=== PATIENT | male | born 1975 | race African-American/Black ===

== ENCOUNTER 2023-10-08 19:07 | Observation (INO) | payer BC, SELFPAY ==
[2023-10-08] VITALS (12 sets, daily range): BP systolic 131–190; BP diastolic 76–139; PULSE 99–120; RESP 15–23; TEMP 36.2–36.9; O2SAT 93–100; BMI 38.7
--- NOTE | ~2023-10-08 | XR_ITS ---
EXAMINATION: XR chest 1V portable DATE: 10/08/2023 20:16 INDICATION: Pneumonia. TECHNIQUE: A single frontal view of the chest was obtained. COMPARISON: CT abdomen and pelvis 10/08/2023 FINDINGS: There are airspace opacities in medial right lower lung zone. No pleural effusion or pneumo thorax. The heart size is normal. IMPRESSION: 1. Airspace opacities in medial right lower lung zone, consistent with pneumonia. Reviewed, dictated and finalized at location E. IMPRESSION: 1. Airspace opacities in medial right lower lung zone, consistent with pneumoni a.
--- NOTE | ~2023-10-08 | CT_ITS ---
EXAMINATION: CT diagnostic chest wo con DATE: 10/09/2023 12:47 INDICATION: necrotizing pna TECHNIQUE: Computed tomography (CT) of the chest was performed without intravenous contrast. Addition al 3D reconstructions utilizing coronal maximum intensity projection (MIP) were performed. Automated exposure control and iterative reconstruction technique were employed. The dose-length product was 94 0.48 mGy-cm. COMPARISON: CT abdomen and pelvis dated 10/08/2023 FINDINGS: No significant change in a region of consolidation involving the azygos esophageal recess at the medi al right lower lobe. As previously noted there is a small cavitary region within the consolidation th e portion which appears fluid-filled and the portion which is gas-filled. Remainder of the visualized lungs are clear. No pulmonary edema or pleural effusion. Heart size is normal. New minimal pericardi al effusion. Thoracic aorta is normal in caliber. No pathologically enlarged thoracic lymphadenopathy . Mild bilateral gynecomastia. Mild thoracic spondylosis. IMPRESSION: 1. No significant change in a region of consolidation with central cavitation in the medial right low er lobe consistent with necrotizing pneumonia. 2. New minimal pericardial effusion. Reviewed, dictated and finalized at location A. IMPRESSION: 1. No significant change in a region of consolidation with central cavitation i n the medial right lower lobe consistent with necrotizing pneumonia. 2. New minimal pericardial effusion.
--- NOTE | ~2023-10-08 | CT_ITS ---
EXAMINATION: CT abdomen pelvis w con DATE: 10/08/2023 19:57 INDICATION: Generalized abdominal pain. TECHNIQUE: Computed tomography (CT) of the abdomen and pelvis was performed with 100 mL Omnipaque 350 intravenous contrast. Automated exposure control and iterative reconstruction technique were employe d. The dose-length product was 1582.92 mGy-cm. COMPARISON: None. FINDINGS: The visualized portions of the lung bases demonstrate airspace opacities with air bronchogr ams and central necrosis in right lower lobe, consistent with pneumonia. No pleural effusion. The hea rt size is normal. No pericardial effusion. The liver, spleen, pancreas, adrenal glands, and kidneys are normal. The gallbladder is absent. The appendix is focally dilated to 17 mm with adjacent fat str anding and fluid, consistent with appendicitis. There is a small sliding hiatal hernia. There are no pathologically enlarged lymph nodes. There is mild thoracic and lumbar spondylosis. IMPRESSION: 1. Acute appendicitis. 2. Necrotizing pneumonia in right lung lower lobe. Reviewed, dictated and finalized at location E.
[2023-10-08 19:26] LABS: Basophils Absolute Auto 0.1 K/mm3 (0.0-0.1); Basophils Percent Auto 0.4 % (0.2-1.2); Eosinophils Absolute Auto 0.2 K/mm3 (0-0.3); Eosinophils Percent Auto 1.6 % (0-4.4); Hematocrit 40.4 % (42.0-52.0); Hemoglobin 13.1 g/dL (14.0-18.0); Immature Granulocyte Absolute 0.06 K/mm3 (0.00-0.031); Immature Granulocyte Percent A 0.4 % (0-0.5); Lymphocytes Absolute Auto 2.44 K/mm3 (0.9-3.2); Lymphocytes Percent Auto 17.2 % (18.3-44.2); Mean Corpuscular HGB Conc 32.4 g/dl (32-36); Mean Corpuscular Hemoglobin 27.3 pg (26-34); Mean Corpuscular Volume 84.3 fl (80-100); Mean Platelet Volume 8.4 fl (7.4-10.4); Monocytes Percent Auto 6.9 % (2.6-8.5); Neutrophils Absolute Auto 10.4 K/mm3 (1.3-6.7); Neutrophils Percent Auto 73.5 % (45.5-73.1); Platelet Count Result 399 k/mm3 (150-375); Red Blood Count 4.79 M/mm3 (4.6-6.20); Red Cell Distribution Width 14.8 % (11.5-14.5); White Blood Count 14.2 K/mm3 (4.5-10.0)
--- NOTE | 2023-10-08 19:28 | ECG_ITS ---
SEE SCANNED COPY FOR CONFIRMED REPORT MTDD
--- NOTE | 2023-10-08 19:29 | ED.ABDPAIN ---
HPI - Abdominal Pain General Chief Complaint: Abdominal Pain Stated Complaint: abd pain; hx of ulcers Time Seen by Provider: 10/08/23 19:12 History of Present Illness HPI narrative: 48-year-old male with a history of HTN and reported gastric ulcer presents to the emergency department for diffuse abdominal pain for 1 day. Patient states for the past few weeks he has had more heartburn than usual. Today he woke up with diffuse abdominal pain that is more near his periumbilical region and wraps around to his flanks. States he had a bowel movement today but it felt smaller than normal. States he has not passed flatulence since last night. He reports nausea, denies emesis. States he had an episode of diarrhea about 3-4 days ago but nothing recently. He denies fever, chest pain or shortness of breath, melena or hematochezia, hematemesis or coffee-ground emesis, dysuria or hematuria. He denies history of an EGD and does not take a PPI. Related Data Home Medications Medication Instructions Recorded Confirmed nifedipine 60 mg tablet,extended 60 mg PO DAILY 10/08/23 10/08/23 release Allergies Allergy/AdvReac Type Severity Reaction Status Date / Time No Known Allergies Allergy Verified 10/08/23 19:12 Review of Systems Review of Systems: CONSTITUTIONAL: Denies fever, chills, or sweats. EYES: Denies visual changes, redness, or discharge. ENT: Denies rhinorrhea, congestion, sore throat, or otalgia. CARDIOVASCULAR: Denies chest pain, palpitations, or edema. RESPIRATORY: Denies cough or dyspnea. GASTROINTESTINAL: See HPI GENITOURINARY: Denies dysuria or hematuria. SKIN: Denies rash or itching. MUSCULOSKELETAL: Denies back pain, joint pain, or myalgia. NEUROLOGIC: Denies headache, numbness, or weakness. PSYCHIATRIC: Denies anxiety or depression. [facility] Past Medical History Medical History (Updated 10/08/23 @ 22:48 by Emilia Cisse DO) Essential hypertension Obesity (BMI 30-39.9) Surgical History Surgical History (Updated 10/08/23 @ 22:38 by Emilia Cisse DO) Status post open reduction with internal fixation of fracture Right wrist fracture Family History Family History (Updated 10/08/23 @ 22:39 by Emilia Cisse DO) Sibling Blind in both eyes Obesity Social History Social History (Updated 10/08/23 @ 22:41 by Emilia Cisse DO) Social History: The patient is but lives with his girlfriend and her 6-year-old daughter. He also has a 28-year-old son. He works as a sales merchandise associate. He smoked cigarettes for about 3 years about 1 pack per week but quit when he was in his early 20s. He drinks on average 1 beer a day. He smokes marijuana on a frequent basis. He denies other illicit substance use. Code status: Full code Years smoked: 3 Smoking status: Current some day smoker Second hand tobacco smoke exposure: No Additional smoking assessment comments: marijuana Alcohol intake: current Drinks per week: 10 Alcohol use details: On average 1 beer a day with more on the weekends. Substance use: current Substance use type: marijuana Last use: 10/06/23 Do You Feel Safe in your Home?: Yes Lack of Transportation: No Lack of Food: Never True Current Housing: I Do Not Have Housing Concerned About Future Housing: No Difficulty Paying Gas/Electric Bills: No Difficulty Paying for Meds: No Currently Unemployed: No Education: Bachelor's Degree Difficulty w/ Childcare or Family Care: No Spiritual care concerns: No Exam Narrative: GENERAL: Well-appearing, well-nourished, and in no acute distress. HEAD: Normocephalic, atraumatic. EYES: PERRLA and EOMI. ENT: Nares clear, no rhinorrhea or epistaxis. Mucous membranes moist. NECK: Supple. CHEST: Clear to auscultation. No respiratory distress. HEART: Tachycardic with regular rhythm. No murmur heard. Normal peripheral pulses. ABDOMEN: Quiet bowel sounds. Abdomen soft with no tenderness, reboun
[2023-10-08 19:35] LABS: Alanine Aminotransferase 25 U/L (6-50); Albumin Level 4.9 g/dL (3.5-5.1); Alkaline Phosphatase 116 U/L (38-126); Anion Gap 10 mmol/L (4-12); Aspartate Amino Transferase 22 U/L (17-59); Bilirubin,Total 0.7 mg/dL (0.2-1.3); Blood Urea Nitrogen 13 mg/dL (9-20); Calcium 10.2 mg/dL (8.4-10.2); Carbon Dioxide 27 mmol/L (22-30); Chloride 104 mmol/L (98-107); Estimated CRCL calculation 114 ml/min; Estimated Glomerular Filt Rate > 60; Glucose 120 mg/dL (65-110); Lipase 66 U/L (23-300); Potassium 3.7 mmol/L (3.4-5.0); Sodium 141 mmol/L (137-145)
[2023-10-08] MEDS: SODIUM CHLORIDE 0.9% IV 1,000 ML 999 ML IV CONT ×3 (19:36→21:06)
[2023-10-08] MEDS: ONDANSETRON INJ 4 MG/2 ML VIAL IV PUSH (19:36)
[2023-10-08] MEDS: PANTOPRAZOLE SODIUM IV 40 MG VIAL IV PUSH (19:36)
--- NOTE | 2023-10-08 19:46 | PC.NURSE ---
Pt aware of need for urine sample.
[2023-10-08 19:49] LABS: Lactic Acid Reflex 1.3 mmol/L (0.7-2.0)
[2023-10-08 19:53] LABS: Troponin I < 0.012 ng/mL (0.000-0.034)
[2023-10-08 20:01] LABS: INR 0.9; Prothrombin Time 12.8 Seconds (11.1-14.7)
[2023-10-08 20:10] LABS: Appearance Urine Clear (Clear); Bacteria Urine None Seen /hpf; Bilirubin Urine Negative (Negative); Blood Urine Non-Hemolyzed Trace (Negative); Color Urine Yellow (Yellow); Glucose Urine UA Negative (Negative); Ketones Urine Trace mg/dL (Negative); Leukocyte Esterase Ur Negative LEU/UL (Negative); Nitrate Urine Negative (Negative); Non Pathogenic Casts 0-2; Protein Urine Negative (Negative); RBC Urine 0-2 /hpf (0-2); Squamous Epithelial Cell Urine None Seen /hpf (Few); Urobilinogen Urine 0.2 mg/dL (<2.0); WBC Urine 0-5 /hpf (0-3)
[2023-10-08] MEDS: MORPHINE SULFATE (*CRX) 4 MG/ML INJ IV PUSH (20:31)
[2023-10-08] MEDS: PIPERACILLN/TAZ 3.375GM/NS50ML 3.375 GM/50 ML BAG IVPB (20:32)
[2023-10-08 20:39] LABS: Add Urine Microscopic? YES; Specific Grav Ur 1.033 (1.001-1.035)
--- NOTE | 2023-10-08 21:07 | PM.IMHP ---
H&P: HPI History of Present Illness Date/Time: 10/08/23 21:07 Chief Complaint: Abdominal pain Narrative: 48-year-old male with past medical history of obesity and essential hypertension who presents the ER with private vehicle due to abdominal pain. The patient reports that he has been having GERD symptoms on and off for months. He took Tums, Maalox and Pepcid intermittently that would improve the symptoms. He had also had a some associated decreased appetite throughout that. But no nausea or vomiting. He reported that was difficult to eat due to the soreness of his throat from the burning pain that would go up his esophagus. However yesterday his pain acutely changed he. He developed the abdominal distension, decreased flatulence and diffuse abdominal pain. The pain is sharp and a 9/10 in intensity. He has had some associated nausea with this pain but no active vomiting. The pain is more so in the lower abdomen and radiates through to the back. His abdomen generally hurts but there is no rebound tenderness. He reports he has not had any flatulence since yesterday. He reports that he did have a couple of days of loose stools about 3 weeks ago but has not had a recurrence. He denies any hematochezia or melena. He denies prior history of abdominal surgeries. In the ER CT scan was performed which demonstrated findings consistent with acute appendicitis. Incidentally CT also demonstrates right lower lobe air bronchograms with central necrosis consistent with necrotizing pneumonia. Patient adamantly denies any respiratory symptoms. He denies pleuritic chest pain, cough, congestion, shortness of breath, fevers or chills. Patient does have a crowded posterior oropharynx. He states that he does snore but denies daytime fatigue. He states that his doctor told him recently that he needs to start watching his diet. This was around the time he had his cholesterol checked today thinks that his cholesterol may be getting a little bit high. Review of Systems Review of Systems: 12 systems were reviewed with pertinent positives and negatives per HPI. Except as documented in the HPI, all other systems were reviewed and are negative. [facility] Past Medical History Medical History (Updated 10/08/23 @ 22:48 by Emilia Cisse DO) Essential hypertension Obesity (BMI 30-39.9) Surgical History Surgical History (Updated 10/08/23 @ 22:38 by Emilia Cisse DO) Status post open reduction with internal fixation of fracture Right wrist fracture Family History Family History (Updated 10/08/23 @ 22:39 by Emilia Cisse DO) Sibling Blind in both eyes Obesity Social History Social History (Updated 10/08/23 @ 22:41 by Emilia Cisse DO) Social History: The patient is but lives with his girlfriend and her 6-year-old daughter. He also has a 28-year-old son. He works as a outside residential sales professional. He smoked cigarettes for about 3 years about 1 pack per week but quit when he was in his early 20s. He drinks on average 1 beer a day. He smokes marijuana on a frequent basis. He denies other illicit substance use. Code status: Full code Years smoked: 3 Smoking status: Former smoker Second hand tobacco smoke exposure: No Alcohol intake: current Drinks per week: 9 Alcohol use details: On average 1 beer a day with more on the weekends. Substance use: current Substance use type: marijuana Meds Home Medications and Allergies Home Medications Medication Instructions Recorded Confirmed Type nifedipine 60 mg tablet,extended mg PO 10/08/23 History release propranolol 10 mg tablet mg 10/08/23 History sertraline 50 mg tablet mg 10/08/23 History Allergies Allergy/AdvReac Type Severity Reaction Status Date / Time No Known Allergies Allergy Verified 10/08/23 19:12 Vital Signs Vital Signs - 24 hr 10/08/23 19:09 10/08/23 19:32 10/08/23 20:40 Temperature 98.5 F Pulse Rate 117 H 120
[2023-10-08] MEDS: HYDROmorphone HCL INJ (*CRX) 1 MG/ML SYR IV PUSH ×2 (21:41→23:05)
[2023-10-08] MEDS: VANCOMYCIN 1,250 MG/NS 250 ML 1,250 MG/250 ML BAG 166.67 MG IVPB ×2 (21:42→23:24)
[2023-10-08 22:03] LABS: MRSA (PCR) NOT DETECTED (NOT DETECTE)
--- NOTE | 2023-10-08 22:43 | ADMGEN ---
This patient, Phoenix Chua, was admitted to Medical Room 242-. Patient/family oriented to hospital policies and general routines including ID bracelet, bed and alarms, visiting hours, pain management, procedures, bathroom and other care routines, personal items, smoking policy, room service/diet, and visiting hours. Information on how to activate the Rapid Response Team has been discussed. Patient/Family are encouraged to report perceived risks to care and to ask questions if they do not understand what they are told or what they should do.
[2023-10-08] MEDS: SODIUM CHLORIDE 0.9% IV 1,000 ML 100 ML IV CONT (23:06)
[2023-10-09] VITALS (19 sets, daily range): BP systolic 99–161; BP diastolic 53–99; PULSE 74–110; RESP 16–19; TEMP 36.2–37.2; O2SAT 92–100
[2023-10-09] MEDS: PIPERACILLN/TAZ 3.375GM/NS50ML 3.375 GM/50 ML BAG IVPB ×2 (01:05→06:07)
--- NOTE | 2023-10-09 05:03 | PCRCNOTE ---
Apnea link not performed last night due to not enough time. The apnea link was ordered at 22:48, patient was being admitted by RN and she would be going in and out of his room for a couple of hours. Apnea link to be completed [facility] 10/08.
[2023-10-09 05:40] LABS: Basophils Percent Auto 0.2 % (0.2-1.2); Hematocrit 39.8 % (42.0-52.0); Hemoglobin 12.7 g/dL (14.0-18.0); Immature Granulocyte Percent A 0.6 % (0-0.5); Lymphocytes Absolute Auto 1.23 K/mm3 (0.9-3.2); Lymphocytes Percent Auto 7.2 % (18.3-44.2); Mean Corpuscular HGB Conc 31.9 g/dl (32-36); Mean Corpuscular Hemoglobin 27.3 pg (26-34); Mean Corpuscular Volume 85.6 fl (80-100); Mean Platelet Volume 8.8 fl (7.4-10.4); Monocytes Absolute Auto 1.2 K/mm3 (0.1-0.6); Monocytes Percent Auto 7.3 % (2.6-8.5); Neutrophils Absolute Auto 14.5 K/mm3 (1.3-6.7); Neutrophils Percent Auto 84.7 % (45.5-73.1); Platelet Count Result 395 k/mm3 (150-375); Red Blood Count 4.65 M/mm3 (4.6-6.20); Red Cell Distribution Width 14.5 % (11.5-14.5); White Blood Count 17.1 K/mm3 (4.5-10.0)
[2023-10-09 05:58] LABS: Anion Gap 8 mmol/L (4-12); Blood Urea Nitrogen 9 mg/dL (9-20); Calcium 8.9 mg/dL (8.4-10.2); Carbon Dioxide 25 mmol/L (22-30); Chloride 104 mmol/L (98-107); Estimated CRCL calculation 144 ml/min; Estimated Glomerular Filt Rate > 60; Glucose 124 mg/dL (65-110); Potassium 3.8 mmol/L (3.4-5.0); Sodium 137 mmol/L (137-145)
--- NOTE | 2023-10-09 07:12 | P.PNIM_ITS ---
Progress Note: A&P Assessment and Plan (1) Sepsis: Qualifiers: Sepsis acute organ dysfunction status: without acute organ dysfunction Sepsis type: sepsis due to unspecified organism Qualified Code(s): A41.9 - S epsis, unspecified organism Code(s): A41.9 - Sepsis, unspecified organism Status: Acute Assessment and Plan: Tachycardia, leukocytosis, tachypnea * appendicitis and possibly necrotizing pneumonia * Lactic 1.3, WBC 17.1 with left shift * 3 L NS received in the ED and placed on maintenance fluids 100 ml per hr * Started on Vanc and Zosyn, switched to Levaquin and Flagyl * Blood cultures pending (2) Acute appendicitis: Qualifiers: Acute appendicitis type: with localized peritonitis Appendicitis abscess presence: without abscess Appendicitis gangrene presence: without gangrene Appendicitis perforation presence: without perforation Qualified Code(s): K35.30 - Acute appendicitis with localized peritonitis, without perforation or gangrene Code(s): K35.80 - Unspecified acute appendicitis Status: Acute Assessment and Plan: Abdominal pain * CT imaging shows concerns for appendicitis * NPO now * Surgery consulted * Levaquin and Zosyn abx * Dilaudid prn for pain and zofran prn nausea (3) Necrotizing pneumonia: Code(s): J85.0 - Gangrene and necrosis of lung Status: Acute Assessment and Plan: CT findings of necrotizing pneumonia in right lung lower lobe. No respiratory symptoms. Patient has been having issues with GERD. Possible reflux aspiration contributing to pneumonia? * Levaquin and Flagyl * blood cultures pending, sputum culture if able * urine legionella, pneumococcal antigen and IgM antibody pending * Protonix 40 mg IVP daily * MRSA nares negative * incentive spirometer * o2 as needed (4) Snoring: Code(s): R06.83 - Snoring Status: Acute Assessment and Plan: Suspecting ELBA * apnea link at * likely would benefit from outpatient sleep study (5) Essential hypertension: Code(s): I10 - Essential (primary) hypertension Status: Acute Assessment and Plan: SBP 190-160/99-108 mm hg * uncontrolled HTN and possible elevation 2/2 pain * Restart Procardia today * Hydralazine prn for SBP > 160 mm hg or diastolic > 105 mm hg Plan Feeding: NPO for surgery Analgesia: Dilaudid prn Thromboembolic prophylaxis: Lovenox Ulcer prophylaxis: Protonix Glycemic control: NA Bowel regimen: NA Lines: PIV Antibiotics: levaquin and flagyl Disposition: home when medically stable Subjective Date/time seen: 10/09/23 07:12 Interval history: 48-year-old male with past medical history of obesity and essential hypertension who presents the ER with private vehicle due to abdominal pain. In the ER CT scan was performed which demonstrated findings consistent with acute appendi citis.? Incidentally CT also demonstrates right lower lobe air bronchograms with central necrosis consistent with necrotizing pneumonia.? Patient adamantly denies any respiratory symptoms.? He denies pleuritic chest pain, cough, congestion, shortness of breath, fevers or chills. Interval history: 10/08: The patient is seen resting in bed with family at bedside in no acute distress. He rates his abdominal pain about a 4/10. This is improved from 9/10 when he 1st presented. He denies any respiratory complaints including cough, shortness of breath, chest pain with inspiration, fever, or chills. His lung sounds are clear bilaterally. He is not requiring oxyge
--- NOTE | 2023-10-09 07:12 | PM.IMPN ---
Progress Note: A&P Assessment and Plan (1) Sepsis: Qualifiers: Sepsis acute organ dysfunction status: without acute organ dysfunction Sepsis type: sepsis due to unspecified organism Qualified Code(s): A41.9 - Sepsis, unspecified organism Code(s): A41.9 - Sepsis, unspecified organism Status: Acute Assessment and Plan: Tachycardia, leukocytosis, tachypnea appendicitis and possibly necrotizing pneumonia Lactic 1.3, WBC 17.1 with left shift 3 L NS received in the ED and placed on maintenance fluids 100 ml per hr Started on Vanc and Zosyn, switched to Levaquin and Flagyl Blood cultures pending (2) Acute appendicitis: Qualifiers: Acute appendicitis type: with localized peritonitis Appendicitis abscess presence: without abscess Appendicitis gangrene presence: without gangrene Appendicitis perforation presence: without perforation Qualified Code(s): K35.30 - Acute appendicitis with localized peritonitis, without perforation or gangrene Code(s): K35.80 - Unspecified acute appendicitis Status: Acute Assessment and Plan: Abdominal pain CT imaging shows concerns for appendicitis NPO now Surgery consulted Levaquin and Zosyn abx Dilaudid prn for pain and zofran prn nausea (3) Necrotizing pneumonia: Code(s): J85.0 - Gangrene and necrosis of lung Status: Acute Assessment and Plan: CT findings of necrotizing pneumonia in right lung lower lobe. No respiratory symptoms. Patient has been having issues with GERD. Possible reflux aspiration contributing to pneumonia? Levaquin and Flagyl blood cultures pending, sputum culture if able urine legionella, pneumococcal antigen and IgM antibody pending Protonix 40 mg IVP daily MRSA nares negative incentive spirometer o2 as needed (4) Snoring: Code(s): R06.83 - Snoring Status: Acute Assessment and Plan: Suspecting ELBA apnea link at likely would benefit from outpatient sleep study (5) Essential hypertension: Code(s): I10 - Essential (primary) hypertension Status: Acute Assessment and Plan: SBP 190-160/99-108 mm hg uncontrolled HTN and possible elevation 2/2 pain Restart Procardia today Hydralazine prn for SBP > 160 mm hg or diastolic > 105 mm hg Plan Feeding: NPO for surgery Analgesia: Dilaudid prn Thromboembolic prophylaxis: Lovenox Ulcer prophylaxis: Protonix Glycemic control: NA Bowel regimen: NA Lines: PIV Antibiotics: levaquin and flagyl Disposition: home when medically stable Subjective Date/time seen: 10/09/23 07:12 Interval history: 48-year-old male with past medical history of obesity and essential hypertension who presents the ER with private vehicle due to abdominal pain. In the ER CT scan was performed which demonstrated findings consistent with acute appendicitis.? Incidentally CT also demonstrates right lower lobe air bronchograms with central necrosis consistent with necrotizing pneumonia.? Patient adamantly denies any respiratory symptoms.? He denies pleuritic chest pain, cough, congestion, shortness of breath, fevers or chills. Interval history: 10/08: The patient is seen resting in bed with family at bedside in no acute distress. He rates his abdominal pain about a 4/10. This is improved from 9/10 when he 1st presented. He denies any respiratory complaints including cough, shortness of breath, chest pain with inspiration, fever, or chills. His lung sounds are clear bilaterally. He is not requiring oxygen. Plan is to go for surgery today for appendectomy. Review of Systems Review of Systems: All systems reviewed & are unremarkable except as noted in HPI and below Exam Narrative: General: well appearing, well developed, well nourished, appears stated age. HEENT: normocephalic, atraumatic. Mucous membranes moist. EOMI, PERRLA, bilateral sclera anicteric, no conjunctival injection. Nec
--- NOTE | 2023-10-09 07:38 | ECG_ITS ---
SEE SCANNED COPY FOR CONFIRMED REPORT MTDD
[2023-10-09] MEDS: metroNIDAZOLE 500 MG/ISO 100ML 500 MG/100 ML BAG 100 MG IVPB ×3 (08:26→21:46)
[2023-10-09] MEDS: PANTOPRAZOLE SODIUM IV 40 MG VIAL IV PUSH (09:44)
[2023-10-09] MEDS: levoFLOXacin 750 MG/D5W 150 ML 750 MG/150 ML BAG 100 MG IVPB (09:44)
--- NOTE | 2023-10-09 10:06 | PM.CNGS ---
Assessment and Plan Assessment and plan (1) Acute appendicitis: Qualifiers: Acute appendicitis type: with localized peritonitis Appendicitis abscess presence: without abscess Appendicitis gangrene presence: without gangrene Appendicitis perforation presence: without perforation Qualified Code(s): K35.30 - Acute appendicitis with localized peritonitis, without perforation or gangrene Code(s): K35.80 - Unspecified acute appendicitis Status: Acute Assessment and Plan: CT scan showing acute appendicitis and possible necrotizing pneumonia. No CT evidence of perforation or abscess. The patient's clinical symptoms and exam correlate with acute appendicitis. We discussed options of both nonoperative treatment with IV antibiotics/monitoring versus proceeding with surgery. We discussed the risks of recurrence or treatment failure with the option of antibiotic therapy. I also discussed the details of a laparoscopic appendectomy, possible open, under general anesthesia that would be done by Dr. Olivares. Description of the procedure, risks, benefits, alternatives, and expected recovery were discussed. He agrees with proceeding with surgery. Keep NPO and continue IV antibiotics, IV fluids, and analgesics as needed pre-operatively. He was added onto the surgery schedule today. (2) Necrotizing pneumonia: Code(s): J85.0 - Gangrene and necrosis of lung Status: Acute Assessment and Plan: CT scan suggests possible necrotizing pneumonia. He does not have any clinical symptoms consistent with pneumonia. Regardless, he is covered with IV antibiotics the also treat the pneumonia. Discussed with the hospitalist. (3) Sepsis: Qualifiers: Sepsis acute organ dysfunction status: without acute organ dysfunction Sepsis type: sepsis due to unspecified organism Qualified Code(s): A41.9 - Sepsis, unspecified organism Code(s): A41.9 - Sepsis, unspecified organism Status: Acute Assessment and Plan: Secondary to acute appendicitis versus combination with necrotizing pneumonia. Blood cultures pending. Plan to go to the OR for source control for the acute appendicitis. Continue broad-spectrum IV antibiotics, IV fluids. (4) Obesity (BMI 30-39.9): Code(s): E66.9 - Obesity, unspecified Status: Acute (5) Essential hypertension: Code(s): I10 - Essential (primary) hypertension Status: Acute (6) GERD (gastroesophageal reflux disease): Code(s): K21.9 - Gastro-esophageal reflux disease without esophagitis Status: Acute Plan I have discussed the patient's case and plan of care with Dr. Olivares. Thank you for allowing us to see the patient in consultation and we will continue to follow along with you. History of Present Illness Consult details Consult date: 10/09/23 Reason for consult: other (Acute appendicitis.) Requesting physician: Alexandria Fisher PA-C Narrative: This is a 48-year-old man with a history of hypertension, who presented to the emergency department last night with complaints of abdominal pain. He reports noticing reflux symptoms over the past few months that have become more frequent over the past 2 weeks. He would notice heartburn and throat soreness. He has been taking Tums, Maalox, and Pepcid intermittently that would improve his symptoms. Yesterday, he woke up feeling bloated and noticed some mild periumbilical abdominal pain. Initially, he thought he was constipated and went to work. His pain progressively worsened throughout the day and began to radiate into his right lateral lower abdomen and right flank. The pain became so severe that he decided to come into the ER for evaluation. Denies any nausea, vomiting, fever or chills. [place]up [place] [id number]. He was afebrile. He is also tachycardic with a heart rate of 117 and slightly tachypneic. Blood pressures were elevated as high as 190/139. CT scan of
[2023-10-09] MEDS: NIFEdipine 30 MG TAB.ER.24 60 MG PO (11:43)
--- NOTE | 2023-10-09 12:55 | PC.NURSE ---
Patient off floor to OR via bed.
[2023-10-09 12:58] LABS: Procalcitonin 0.1 ng/mL
[2023-10-09] MEDS: LACTATED RINGERS 1,000 ML 30 ML IV CONT ×4 (13:05→16:43)
--- NOTE | 2023-10-09 13:23 | WPDANESEPPF ---
Anes - Initial Pre Proc Eval Procedure: Operation Date: 10/09/23 15:00 Proposed Procedures p Laparoscopic Appendectomy - Danie Olivares DO Date/Time: 10/09/23 13:23 Surgeon: Emilia Cisse DO Pre Op Diagnosis: Acute Appendicitis Patient Data Age: 48 Gender: M Height: 1.96 m Weight: 148.4 kg Last Vital Signs Temp 36.9 C 10/09/23 05:11 Pulse 102 H 10/09/23 08:00 Resp 19 10/09/23 05:11 BP 161/99 H 10/09/23 05:11 Pulse Ox 97 10/09/23 07:28 O2 Del Method Room Air 10/09/23 08:20 Allergies Allergy/AdvReac Type Severity Reaction Status Date / Time No Known Allergies Allergy Verified 10/08/23 19:12 Home Medications Medication Instructions Recorded Confirmed Type nifedipine 60 mg tablet,extended 60 mg PO DAILY 10/08/23 10/08/23 History release Laboratory Tests 10/08/23 10/08/23 10/08/23 19:00 19:17 19:18 WBC 14.2 H K/mm3 (4.5-10.0) RBC 4.79 M/mm3 (4.6-6.20) Hgb 13.1 L g/dL (14.0-18.0) Hct 40.4 L % (42.0-52.0) MCV 84.3 fl (80-100) MCH 27.3 pg (26-34) MCHC 32.4 g/dl (32-36) RDW 14.8 H % (11.5-14.5) Plt Count 399 H k/mm3 (150-375) MPV 8.4 fl (7.4-10.4) Immature Gran % (Auto) 0.4 % (0-0.5) Neut % (Auto) 73.5 H % (45.5-73.1) Lymph % (Auto) 17.2 L % (18.3-44.2) [place] % (Auto) 6.9 % (2.6-8.5) Eos % (Auto) 1.6 % (0-4.4) Baso % (Auto) 0.4 % (0.2-1.2) Lymph # (Auto) 2.44 K/mm3 (0.9-3.2) [place] # (Auto) 1.0 H K/mm3 (0.1-0.6) Eos # (Auto) 0.2 K/mm3 (0-0.3) Baso # (Auto) 0.1 K/mm3 (0.0-0.1) Abs Immat Gran (auto) 0.06 H K/mm3 (0.00-0.031) Absolute Neuts (auto) 10.4 H K/mm3 (1.3-6.7) Absolute Nucleated RBC 0.000 K/mm3 (0.0-0.012) Nucleated RBC % 0.0 % (0.0-0.2) PT 12.8 Seconds (11.1-14.7) INR 0.9 APTT 43.0 H Seconds (22.3-36.8) Sodium 141 mmol/L (137-145) Potassium 3.7 mmol/L (3.4-5.0) Chloride 104 mmol/L (98-107) Carbon Dioxide 27 mmol/L (22-30) Anion Gap 10 mmol/L (4-12) BUN 13 mg/dL (9-20) Creatinine 1.10 mg/dL (0.7-1.3) Estim Creat Clear Calc 114 ml/min Estimated GFR > 60 (59 - ) Glucose 120 H mg/dL (65-110) Lactic Acid Calcium 10.2 mg/dL (8.4-10.2) Total Bilirubin 0.7 mg/dL (0.2-1.3) AST 22 U/L (17-59) ALT 25 U/L (6-50) Alkaline Phosphatase 116 U/L (38-126) Troponin I < 0.012 ng/mL (0.000-0.034) Total Protein 9.0 H g/dL (6.3-8.2) Albumin 4.9 g/dL (3.5-5.1) Lipase 66 U/L (23-300) Procalcitonin Urine Color Urine Appearance Urine pH Ur Specific [place] Urine Protein Urine Glucose (UA) Urine Ketones Ur Blood (Man) Urine Nitrate Urine Bilirubin Urine Urobilinogen Leukocyte Esterase Rfl Urine RBC Urine WBC Ur Squamous Epith Cells Urine Bacteria Urine Casts Nasal MRSA (PCR) Ur L.pneumophila Ag Mycoplasma pneumon IgM Urine Pneumococcal Ag 10/08/23 10/08/23 10/08/23 19:34 20:00 20:41 WBC RBC Hgb Hct MCV MCH MCHC RDW Plt Count MPV Immature Gran % (Auto) Neut % (Auto) Lymph % (Auto) [place] % (Auto) Eos % (Auto) Baso % (Auto) Lymph # (Auto) [place] # (Auto
--- NOTE | 2023-10-09 13:33 | WPDHPUPDATE1 ---
History and Physical Update Update Date/Time: 10/09/23 13:33 History and Physical has been reviewed, including an updated exam of the patient. There are NO changes in the patient's condition. Risks, benefits, and alternatives have been discussed and questions answered. Patient agrees to proceed with procedure.
[2023-10-09] MEDS: BUPIVACAINE/EPINEPHRINE 0.5% 30 ML VIAL INFILTRATE (14:34)
[2023-10-09] MEDS: KETOROLAC 30 MG/ML VIAL (*BKC) IV PUSH (14:46)
--- NOTE | 2023-10-09 16:16 | W.PM.PROC2 ---
Procedure Note - Detailed Date of Procedure 10/09/23 Pre-op Diagnosis Acute Appendicitis Post-op Diagnosis Same Procedure Performed Laparoscopic appendectomy, da [place] assisted Surgeon Danie Olivares, DO Anesthesia General and Local ( 0.5% bupivacaine with epinephrine) Indications this is a 48-year-old man who presented to the emergency department last night with right lower quadrant abdominal pain. His pain started that is more epigastric vague abdominal pain and then localized to the right lower quadrant. He had an elevated white blood count and CT showed evidence of acute appendicitis. He was admitted for further treatment and placed on broad-spectrum IV antibiotics. Discussions were made with the patient about treatment options and decision was made to proceed with robotic assisted laparoscopic appendectomy. Findings Laparoscopic appendectomy was performed. The appendix was identified in a retrocecal and retroperitoneal location. This was very difficult to identify at 1st but as I mobilized the cecum off of the lateral peritoneal attachments, I was able to eventually identify the base of the appendix and trace this all the way to the tip. There were some adhesions around the appendix but there did not appear to be any evidence of perforation or abscess. The base of the appendix appeared healthy viable. The appendix was removed and sent to the lab for pathology. Description of Procedure Procedure as well as risks, benefits, and alternatives were discussed with the patient. Written consent was obtained and placed in chart prior to procedure. Patient was brought back to surgical suite. He was placed supine on operating table. Time-out was done to confirm patient and procedure. He was then intubated by the anesthesia department. His abdomen was prepped and draped in sterile fashion using chlorhexidine prep. An 8 mm incision was made in the left upper quadrant and an 5 mm Optiview trocar was advanced under direct visualization through the abdominal layers. Once inside the peritoneal cavity, carbon dioxide insufflation was used for pneumoperitoneum. The camera was inserted in the abdominal cavity was carefully inspected. The patient was then placed in 10? Trendelenburg and 5? left tilt. An 8 mm incision was made in the left lower quadrant an 8 mm trocar was inserted under direct visualization. Another 8 mm incision was made in the left mid abdomen and an 8 mm trocar was inserted under direct visualization. The 5 mm port was then removed and this was replaced with another 8 mm port. The robotic arms were then brought up to patient's bedside and secured to the ports. The camera and instruments were then inserted. Using a Cadiere grasper and hook electrocautery, I carefully inspected the right lower quadrant and identified some adhesions involving the terminal ileum to the left pelvis sidewall. These adhesions were carefully taken down using hook electrocautery. I then began mobilizing the lateral peritoneal attachments of the cecum with hook electrocautery. I traced the tenia coli on the cecum back to the base of the appendix. The appendix was retrocecal and retroperitoneal. I had to continue mobilizing the cecum medially to adequately identify the entire length of the appendix. A 5 mm assist port was placed in the left lateral abdomen to help assist with retracting the terminal ileum medially. Electrocautery was then carefully used to continue dissecting the appendix out from the retrocecal location. I was then able to identify the entire appendix and carefully took down the mesoappendix from the appendix using hook electrocautery. The base of the appendix appeared healthy and viable. No other significant abnormalities were noted. I did use a suction documentation writer to carefully continue any further blunt dissection and suction out any of the blood that had accumulated in this location. I then placed a Vicryl endoloop the base of the append
--- NOTE | 2023-10-09 17:15 | PC.NURSE ---
Patient returned to floor via bed post lap appendectomy.
--- NOTE | 2023-10-09 18:47 | PC.NURSE ---
Returned from OR via bed. Report received from [ ].
--- NOTE | 2023-10-09 18:50 | PC.NURSE ---
Returned from OR via bed post laproscopic appendectomy.
[2023-10-09] MEDS: HYDROcodone/acetaminophen (*CRX) 10-325 MG TABLET 1 TAB PO (19:50)
[2023-10-09] MEDS: guaiFENesin 12 HR 600 MG TABCR 1200 MG PO (19:50)
[2023-10-10] VITALS: PULSE 84
[2023-10-10] MEDS: HYDROcodone/acetaminophen (*CRX) 10-325 MG TABLET 1 TAB PO ×3 (01:38→14:18)
[2023-10-10 02:53] VITALS: BP 147/91; PULSE 92; RESP 18; TEMP 36.6; O2SAT 97
[2023-10-10 04:00] VITALS: PULSE 89
[2023-10-10] MEDS: metroNIDAZOLE 500 MG/ISO 100ML 500 MG/100 ML BAG 100 MG IVPB ×2 (05:16→14:18)
[2023-10-10 06:12] LABS: Basophils Percent Auto 0.1 % (0.2-1.2); Hematocrit 36.6 % (42.0-52.0); Hemoglobin 11.4 g/dL (14.0-18.0); Immature Granulocyte Absolute 0.09 K/mm3 (0.00-0.031); Immature Granulocyte Percent A 0.6 % (0-0.5); Lymphocytes Absolute Auto 1.15 K/mm3 (0.9-3.2); Mean Corpuscular HGB Conc 31.1 g/dl (32-36); Mean Corpuscular Hemoglobin 26.8 pg (26-34); Mean Corpuscular Volume 85.9 fl (80-100); Mean Platelet Volume 9.2 fl (7.4-10.4); Monocytes Absolute Auto 1.1 K/mm3 (0.1-0.6); Monocytes Percent Auto 7.7 % (2.6-8.5); Neutrophils Percent Auto 83.6 % (45.5-73.1); Platelet Count Result 370 k/mm3 (150-375); Red Blood Count 4.26 M/mm3 (4.6-6.20); Red Cell Distribution Width 14.6 % (11.5-14.5); White Blood Count 14.4 K/mm3 (4.5-10.0)
[2023-10-10 06:30] LABS: Alanine Aminotransferase 24 U/L (6-50); Alkaline Phosphatase 96 U/L (38-126); Anion Gap 11 mmol/L (4-12); Aspartate Amino Transferase 20 U/L (17-59); Bilirubin,Total 0.8 mg/dL (0.2-1.3); Blood Urea Nitrogen 12 mg/dL (9-20); Calcium 9.3 mg/dL (8.4-10.2); Carbon Dioxide 22 mmol/L (22-30); Chloride 105 mmol/L (98-107); Estimated CRCL calculation 119 ml/min; Estimated Glomerular Filt Rate > 60; Glucose 115 mg/dL (65-110); Magnesium 2.2 mg/dL (1.6-2.3); Potassium 3.7 mmol/L (3.4-5.0); Sodium 138 mmol/L (137-145)
[2023-10-10 06:48] VITALS: BP 155/92; PULSE 86; RESP 18; TEMP 36.3; O2SAT 97
--- NOTE | 2023-10-10 07:21 | P.PNIM_ITS ---
Progress Note: A&P Assessment and Plan (1) Sepsis: Qualifiers: Sepsis acute organ dysfunction status: without acute organ dysfunction Sepsis type: sepsis due to unspecified organism Qualified Code(s): A41.9 - S epsis, unspecified organism Code(s): A41.9 - Sepsis, unspecified organism Status: Acute Assessment and Plan: Tachycardia, leukocytosis, tachypnea * appendicitis and possibly necrotizing pneumonia * Lactic 1.3, WBC 17.1 with left shift * 3 L NS received in the ED and placed on maintenance fluids 100 ml per hr * Started on Vanc and Zosyn, switched to Levaquin and Flagyl * Blood cultures pending 10/09: * WBC downtrending 14.4 * Afebrile * BC with no growth to date (2) Acute appendicitis: Qualifiers: Acute appendicitis type: with localized peritonitis Appendicitis abscess presence: without abscess Appendicitis gangrene presence: without gangrene Appendicitis perforation presence: without perforation Qualified Code(s): K35.30 - Acute appendicitis with localized peritonitis, without perforation or gangrene Code(s): K35.80 - Unspecified acute appendicitis Status: Acute Assessment and Plan: Abdominal pain * CT imaging shows concerns for appendicitis * NPO now * Surgery consulted * Levaquin and Zosyn abx * Dilaudid prn for pain and zofran prn nausea 10/09: * [place] prn for pain * regular diet * bowel regimen with senna and colace * up to chair during the day, walking ad artem * IS (3) Necrotizing pneumonia: Code(s): J85.0 - Gangrene and necrosis of lung Status: Acute Assessment and Plan: CT findings of necrotizing pneumonia in right lung lower lobe. No respiratory symptoms. Patient has been having issues with GERD. Possible reflux aspiration contributing to pneumonia? * Levaquin and Flagyl * blood cultures pending, sputum culture if able * urine legionella, pneumococcal antigen and IgM antibody pending * Protonix 40 mg IVP daily * MRSA nares negative * incentive spirometer * o2 as needed 10/09: * Case discussed with pulmonology yesterday. Will need IV antibiotics for 3 weeks at discharge and follow up CT chest in 6 weeks. * BC NGTD * Unable to collect sputum due to non-productive cough (4) Snoring: Code(s): R06.83 - Snoring Status: Acute Assessment and Plan: Suspecting ELBA * apnea link at HS * likely would benefit from outpatient sleep study 10/09: * Apnea link positive * AHI 42.3 * Will need outpatient formal sleep study (5) Essential hypertension: Code(s): I10 - Essential (primary) hypertension Status: Acute Assessment and Plan: SBP 190-160/99-108 mm hg * uncontrolled HTN and possible elevation 2/2 pain * Restart Procardia today * Hydralazine prn for SBP > 160 mm hg or diastolic > 105 mm hg 10/09: * Procardia 60 mg daily * Persistent diastolic htn * Added lisinopril 10 mg daily Plan Feeding: general Analgesia: norco Thromboembolic prophylaxis: Lovenox Ulcer prophylaxis: Protonix Glycemic control: NA Bowel regimen: NA Lines: PIV Antibiotics: levaquin and flagyl Disposition: home when medically stable Subjective Date/time seen: 10/10/23 07:21 Interval history: 48-year-old male with past medical history of obesity and essential hypertension who presents the ER with private vehicle due to abdominal pain. In the ER CT scan was performed which demonstrated findings consistent with acute appendicitis.?
--- NOTE | 2023-10-10 07:21 | PM.IMPN ---
Progress Note: A&P Assessment and Plan (1) Sepsis: Qualifiers: Sepsis acute organ dysfunction status: without acute organ dysfunction Sepsis type: sepsis due to unspecified organism Qualified Code(s): A41.9 - Sepsis, unspecified organism Code(s): A41.9 - Sepsis, unspecified organism Status: Acute Assessment and Plan: Tachycardia, leukocytosis, tachypnea appendicitis and possibly necrotizing pneumonia Lactic 1.3, WBC 17.1 with left shift 3 L NS received in the ED and placed on maintenance fluids 100 ml per hr Started on Vanc and Zosyn, switched to Levaquin and Flagyl Blood cultures pending 10/09: WBC downtrending 14.4 Afebrile BC with no growth to date (2) Acute appendicitis: Qualifiers: Acute appendicitis type: with localized peritonitis Appendicitis abscess presence: without abscess Appendicitis gangrene presence: without gangrene Appendicitis perforation presence: without perforation Qualified Code(s): K35.30 - Acute appendicitis with localized peritonitis, without perforation or gangrene Code(s): K35.80 - Unspecified acute appendicitis Status: Acute Assessment and Plan: Abdominal pain CT imaging shows concerns for appendicitis NPO now Surgery consulted Levaquin and Zosyn abx Dilaudid prn for pain and zofran prn nausea 10/09: [place] prn for pain regular diet bowel regimen with senna and colace up to chair during the day, walking ad artem IS (3) Necrotizing pneumonia: Code(s): J85.0 - Gangrene and necrosis of lung Status: Acute Assessment and Plan: CT findings of necrotizing pneumonia in right lung lower lobe. No respiratory symptoms. Patient has been having issues with GERD. Possible reflux aspiration contributing to pneumonia? Levaquin and Flagyl blood cultures pending, sputum culture if able urine legionella, pneumococcal antigen and IgM antibody pending Protonix 40 mg IVP daily MRSA nares negative incentive spirometer o2 as needed 10/09: Case discussed with pulmonology yesterday. Will need IV antibiotics for 3 weeks at discharge and follow up CT chest in 6 weeks. NGTD Unable to collect sputum due to non-productive cough (4) Snoring: Code(s): R06.83 - Snoring Status: Acute Assessment and Plan: Suspecting ELBA apnea link at likely would benefit from outpatient sleep study 10/09: Apnea link positive AHI 42.3 Will need outpatient formal sleep study (5) Essential hypertension: Code(s): I10 - Essential (primary) hypertension Status: Acute Assessment and Plan: SBP 190-160/99-108 mm hg uncontrolled HTN and possible elevation 2/2 pain Restart Procardia today Hydralazine prn for SBP > 160 mm hg or diastolic > 105 mm hg 10/09: Procardia 60 mg daily Persistent diastolic htn Added lisinopril 10 mg daily Plan Feeding: general Analgesia: norco Thromboembolic prophylaxis: Lovenox Ulcer prophylaxis: Protonix Glycemic control: NA Bowel regimen: NA Lines: PIV Antibiotics: levaquin and flagyl Disposition: home when medically stable Subjective Date/time seen: 10/10/23 07:21 Interval history: 48-year-old male with past medical history of obesity and essential hypertension who presents the ER with private vehicle due to abdominal pain. In the ER CT scan was performed which demonstrated findings consistent with acute appendicitis.? Incidentally CT also demonstrates right lower lobe air bronchograms with central necrosis consistent with necrotizing pneumonia.? Patient adamantly denies any respiratory symptoms.? He denies pleuritic chest pain, cough, congestion, shortness of breath, fevers or chills. Interval history: 10/08: The patient is seen resting in bed with family at bedside in no acute distress. He rates his abdominal pain about a 4/10. This is improved from 10 when he 1st presented. He de
[2023-10-10] MEDS: DOCUSATE SODIUM 100 MG CAPSULE PO (08:27)
[2023-10-10] MEDS: lisinopriL 10 MG TABLET PO (08:27)
[2023-10-10] MEDS: guaiFENesin 12 HR 600 MG TABCR 1200 MG PO (08:28)
[2023-10-10] MEDS: levoFLOXacin 750 MG/D5W 150 ML 750 MG/150 ML BAG 100 MG IVPB (08:29)
[2023-10-10] MEDS: PANTOPRAZOLE SODIUM IV 40 MG VIAL IV PUSH (08:29)
[2023-10-10] MEDS: ENOXAPARIN 40 MG/0.4 ML SYRINGE SUB-Q (08:29)
--- NOTE | 2023-10-10 08:33 | P.PNAN_ITS ---
Anes - Prog Note Post-Op Date/Time: 10/10/23 08:33 Cardiovascular status: normal Respiratory status: normal Airway patency: baseline Mental status: baseline Post-Op hydration status: normal Vital Signs: Last Vital Signs Temp 36.3 C L 10/10/23 06:48 Pulse 86 10/10/23 06:48 Resp 18 10/10/23 06:48 BP 155/92 H 10/10/23 06:48 Pulse Ox 97 10/10/23 06:48 O2 Del Method Room Air 10/09/23 20:20 O2 Flow Rate 8 10/09/23 15:55 Pain Score (VAS): Patient asleep. No nonverbal signs of pain present at this time. I/O: Intake & Output 10/09/23 10/10/23 10/10/23 23:59 07:59 15:59 Intake Total 1680 100 Output Total 575 250 Balance 1105 -150 Laboratory Tests 10/10/23 05:14 10/10/23 05:14 10/09/23 10/09/23 10/10/23 04:57 08:37 05:14 WBC 14.4 H RBC 4.26 L Hgb 11.4 L Hct 36.6 L MCV 85.9 MCH 26.8 MCHC 31.1 L RDW 14.6 H Plt Count 370 MPV 9.2 Immature Gran % (Auto) 0.6 H Neut % (Auto) 83.6 H Lymph % (Auto) 8.0 L [place] % (Auto) 7.7 Eos % (Auto) 0.0 Baso % (Auto) 0.1 L Lymph # (Auto) 1.15 [place] # (Auto) 1.1 H Eos # (Auto) 0.0 Baso # (Auto) 0.0 Abs Immat Gran (auto) 0.09 H Absolute Neuts (auto) 12.0 H Absolute Nucleated RBC 0.000 Nucleated RBC % 0.0 Sodium 138 Potassium 3.7 Chloride 105 Carbon Dioxide 22 Anion Gap 11 BUN 12 Creatinine 1.10 Estim Creat Clear Calc 119 Estimated GFR > 60 Glucose 115 H Calcium 9.3 Magnesium 2.2 Total Bilirubin 0.8 AST 20 ALT 24 Alkaline Phosphatase 96 Total Protein 7.0 Albumin 4.0 Procalcitonin 0.1 Ur L.pneumophila Ag Pending Urine Pneumococcal Ag Pending Microbiology 10/08/23 20:24 Blood Blood Culture - Preliminary 10/08/23 20:24 Blood Blood Culture - Preliminary Post-procedural complaints: none Patient Feedback: Patient satisfied with anesthetic care.
--- NOTE | 2023-10-10 11:00 | PC.NURSE ---
On 10/10/23, the student, [Angeles Workman], provided care and completed [facility] documentation on this patient. I have reviewed the student's documentation and agree with the findings.
[2023-10-10] MEDS: NIFEdipine 30 MG TAB.ER.24 60 MG PO (12:07)
--- NOTE | 2023-10-10 12:35 | PM.PNGS ---
Progress Note: A&P Assessment and Plan (1) Acute appendicitis: Qualifiers: Acute appendicitis type: with localized peritonitis Appendicitis abscess presence: without abscess Appendicitis gangrene presence: without gangrene Appendicitis perforation presence: without perforation Qualified Code(s): K35.30 - Acute appendicitis with localized peritonitis, without perforation or gangrene Code(s): K35.80 - Unspecified acute appendicitis Status: Acute Assessment and Plan: Doing well on postop day 1. Surgically stable for discharge. Discharge instructions discussed with patient. Follow-up in 2 weeks. (2) Necrotizing pneumonia: Code(s): J85.0 - Gangrene and necrosis of lung Status: Acute Subjective Subjective Date/Time Seen: 10/10/23 12:35 Interval history: Doing well on postop day 1. Pain controlled. Tolerating diet. No fevers. Exam GI: Inspection: incision (Intact with glue) GI Palp: Yes Soft to palpation, Yes Tenderness to palpation present (GI) (Incisional) and No Guarding due to palpation present (GI) Objective Data Vital Signs Vital Signs: Vital Signs - 24 hr 10/09/23 13:02 10/09/23 15:43 10/09/23 15:55 Temperature 37.2 C 36.2 C L Pulse Rate 110 H 95 93 Respiratory Rate 18 19 17 Blood Pressure 141/91 H 113/53 L 99/70 L Pulse Oximetry 97 100 99 Oxygen Delivery Room Air Simple Face Mask Simple Face Mask Oxygen Flow Rate 8 8 10/09/23 16:10 10/09/23 16:25 10/09/23 16:40 Temperature Pulse Rate 90 85 90 Respiratory Rate 17 17 17 Blood Pressure 137/95 H 146/87 H 129/89 Pulse Oximetry 99 94 92 Oxygen Delivery Room Air Room Air Room Air Oxygen Flow Rate 10/09/23 16:55 10/09/23 17:09 10/09/23 17:24 Temperature 36.9 C 36.9 C Pulse Rate 91 93 74 Respiratory Rate 17 16 18 Blood Pressure 129/89 138/88 139/89 Pulse Oximetry 92 94 97 Oxygen Delivery Room Air Oxygen Flow Rate 10/09/23 18:17 10/09/23 17:10 10/09/23 19:22 Temperature 36.9 C 36.4 C L Pulse Rate 94 91 Respiratory Rate 18 18 Blood Pressure 127/89 137/88 Pulse Oximetry 95 94 98 Oxygen Delivery Room Air Oxygen Flow Rate 10/09/23 20:00 10/09/23 20:00 10/10/23 00:00 Temperature Pulse Rate 91 84 Respiratory Rate Blood Pressure Pulse Oximetry Oxygen Delivery Room Air Oxygen Flow Rate 10/09/23 20:20 10/10/23 02:53 10/10/23 04:00 Temperature 36.6 C Pulse Rate 92 89 Respiratory Rate 18 Blood Pressure 147/91 H Pulse Oximetry 98 97 Oxygen Delivery Room Air Oxygen Flow Rate 10/10/23 06:48 10/10/23 08:30 Temperature 36.3 C L Pulse Rate 86 Respiratory Rate 18 Blood Pressure 155/92 H Pulse Oximetry 97 Oxygen Delivery Room Air Oxygen Flow Rate Intake/Output Intake/Output: Intake & Output 10/07/23 10/08/23 10/09/23 10/10/23 23:59 23:59 23:59 23:59 Intake Total 3050 5080 970 Output Total 2400 250 Balance 3050 2680 720 Meds/Results Medications: Active Medications Generic Name Dose Route Start Last Admin Trade Name Freq PRN Reason Stop Dose Admin Hydrocodone Bitart/Acetaminophen 1 tab 10/09/23 17:09 Hydrocodone/Acetaminophen (*Crx) 5-325 Mg Tablet PO Q4H PRN Pain Rated 4-6 Hydrocodone Bitart/Acetaminophen 1 tab 10/09/23 17:09 10/10/23 08:27 Hydrocodone/Acetaminophen (*Crx) 10-325 Mg Tablet PO 1 tab Q6H PRN Administration Pain Rated 7-10 Diphenhydramine HCl 25 mg 10/09/23 17:09 Diphenhydramine Hcl Inj 50 Mg/Ml Vial IV PUSH Q6H PRN Itching Docusate Sodium 100 mg 10/10/23 09:00 10/10/23 08:27 Docusate Sodium 100 Mg Capsule PO 100 mg Q12HR CAMILA Administration Enoxaparin Sodium 40 mg 10/09/23 09:00 10/10/23 08:29 Enoxaparin 40 Mg/0.4 Ml Syringe SUB-Q 40 mg DAILY CAMILA Administration Guaifenesin 1,200 mg 10/09/23 12:25 10/10/23 08:28 Guaifenesin 12 Hr 600 Mg Tabcr PO 1,200 mg Q12HR CAMILA Administration Hydralazine HCl
[2023-10-10 14:22] VITALS: BP 157/89; PULSE 92; RESP 16; TEMP 36.8; O2SAT 97
--- NOTE | 2023-10-10 16:21 | PC.NURSE ---
This RN was going over discharge paperwork with patient when noticing an error. I told the patient I would be back with corrected paperwork and clarification from the provider. However, patient left hospital floor without notifying any staff members. Patient left with incomplete discharge paperwork. Patient is not answering or returning any calls when attempted to contact. IV was removed before patient left. Hospitalist notified.
--- NOTE | 2023-10-10 20:05 | P.DS_ITS ---
DS: Admitting Diagnosis Discharge Date 10/10/23 Admitting Diagnosis abdominal pain DS: Discharge Diagnosis Discharge Diagnosis (1) Sepsis: Qualifiers: Sepsis acute organ dysfunction status: without acute organ dysfunction Sepsis type: sepsis due to unspecified organism Qualified Code(s): A41.9 - Sepsis, unspecified organism Code(s): A41.9 - Sepsis, unspecified organism Status: Acute Assessment and Plan: Tachycardia, leukocytosis, tachypnea * appendicitis and possibly necrotizing pneumonia * Lactic 1.3, WBC 17.1 with left shift * 3 L NS received in the ED and placed on maintenance fluids 100 ml per hr * Started on Vanc and Zosyn, switched to Levaquin and Flagyl * Blood cultures pending 10/09: * WBC downtrending 14.4 * Afebrile * BC with no growth to date (2) Acute appendicitis: Qualifiers: Acute appendicitis type: with localized peritonitis Appendicitis abscess presence: without abscess Appendicitis gangrene presence: without gangrene Appendicitis perforation presence: without perforation Qualified Code(s): K35.30 - Acute appendicitis with localized peritonitis, without perforation or gangrene Code(s): K35.80 - Unspecified acute appendicitis Status: Acute Assessment and Plan: Abdominal pain * CT imaging shows concerns for appendicitis * NPO now * Surgery consulted * Levaquin and Zosyn abx * Dilaudid prn for pain and zofran prn nausea 10/09: * [place] prn for pain * regular diet * bowel regimen with senna and colace * up to chair during the day, walking ad artem * IS (3) Necrotizing pneumonia: Code(s): J85.0 - Gangrene and necrosis of lung Status: Acute Assessment and Plan: CT findings of necrotizing pneumonia in right lung lower lobe. No respiratory symptoms. Patient has been having issues with GERD. Possible reflux aspiration contributing to pneumonia? * Levaquin and Flagyl * blood cultures pending, sputum culture if able * urine legionella, pneumococcal antigen and IgM antibody pending * Protonix 40 mg IVP daily * MRSA nares negative * incentive spirometer * o2 as needed 10/09: * Case discussed with pulmonology yesterday. Will need oral antibiotics for 3 weeks at discharge and follow up CT chest in 6 weeks. * BC NGTD * Unable to collect sputum due to non-productive cough (4) Snoring: Code(s): R06.83 - Snoring Status: Acute Assessment and Plan: Suspecting ELBA * apnea link at HS * likely would benefit from outpatient sleep study 10/09: * Apnea link positive * AHI 42.3 * Will need outpatient formal sleep study (5) Essential hypertension: Code(s): I10 - Essential (primary) hypertension Status: Acute Assessment and Plan: SBP 190-160/99-108 mm hg * uncontrolled HTN and possible elevation 2/2 pain * Restart Procardia today * Hydralazine prn for SBP > 160 mm hg or diastolic > 105 mm hg 10/09: * Procardia 60 mg daily * Persistent diastolic htn * Added lisinopril 10 mg daily Plan Feeding: general Analgesia: norco Thromboembolic prophylaxis: Lovenox Ulcer prophylaxis: Protonix Glycemic control: NA Bowel regimen: NA Lines: PIV Antibiotics: levaquin and flagyl Disposition: home when medically stable DS: Summary Hospital Course Reason for hospitalization: appendicitis requiring appendectomy and necrotizing pneumonia Hospital Course: 48-year-old male with past medical history of obesi
--- NOTE | 2023-10-10 20:05 | PM.DS ---
DS: Admitting Diagnosis Discharge Date 10/10/23 Admitting Diagnosis abdominal pain DS: Discharge Diagnosis Discharge Diagnosis (1) Sepsis: Qualifiers: Sepsis acute organ dysfunction status: without acute organ dysfunction Sepsis type: sepsis due to unspecified organism Qualified Code(s): A41.9 - Sepsis, unspecified organism Code(s): A41.9 - Sepsis, unspecified organism Status: Acute Assessment and Plan: Tachycardia, leukocytosis, tachypnea appendicitis and possibly necrotizing pneumonia Lactic 1.3, WBC 17.1 with left shift 3 L NS received in the ED and placed on maintenance fluids 100 ml per hr Started on Vanc and Zosyn, switched to Levaquin and Flagyl Blood cultures pending 10/09: WBC downtrending 14.4 Afebrile BC with no growth to date (2) Acute appendicitis: Qualifiers: Acute appendicitis type: with localized peritonitis Appendicitis abscess presence: without abscess Appendicitis gangrene presence: without gangrene Appendicitis perforation presence: without perforation Qualified Code(s): K35.30 - Acute appendicitis with localized peritonitis, without perforation or gangrene Code(s): K35.80 - Unspecified acute appendicitis Status: Acute Assessment and Plan: Abdominal pain CT imaging shows concerns for appendicitis NPO now Surgery consulted Levaquin and Zosyn abx Dilaudid prn for pain and zofran prn nausea 10/09: Eloy prn for pain regular diet bowel regimen with senna and colace up to chair during the day, walking ad artem IS (3) Necrotizing pneumonia: Code(s): J85.0 - Gangrene and necrosis of lung Status: Acute Assessment and Plan: CT findings of necrotizing pneumonia in right lung lower lobe. No respiratory symptoms. Patient has been having issues with GERD. Possible reflux aspiration contributing to pneumonia? Levaquin and Flagyl blood cultures pending, sputum culture if able urine legionella, pneumococcal antigen and IgM antibody pending Protonix 40 mg IVP daily MRSA nares negative incentive spirometer o2 as needed 10/09: Case discussed with pulmonology yesterday. Will need oral antibiotics for 3 weeks at discharge and follow up CT chest in 6 weeks. 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.3 Will need outpatient formal sleep study (5) Essential hypertension: Code(s): I10 - Essential (primary) hypertension Status: Acute Assessment and Plan: SBP 190-160/99-108 mm hg uncontrolled HTN and possible elevation 2/2 pain Restart Procardia today Hydralazine prn for SBP > 160 mm hg or diastolic > 105 mm hg 10/09: Procardia 60 mg daily Persistent diastolic htn Added lisinopril 10 mg daily Plan Feeding: general Analgesia: norco Thromboembolic prophylaxis: Lovenox Ulcer prophylaxis: Protonix Glycemic control: NA Bowel regimen: NA Lines: PIV Antibiotics: levaquin and flagyl Disposition: home when medically stable DS: Summary Hospital Course Reason for hospitalization: appendicitis requiring appendectomy and necrotizing pneumonia Hospital Course: 48-year-old male with past medical history of obesity and essential hypertension who presents the ER with private vehicle due to abdominal pain. In the ER CT scan was performed which demonstrated findings consistent with acute appendicitis.? Incidentally CT also demonstrates right lower lobe air bronchograms with central necrosis consistent with necrotizing pneumonia.? Patient adamantly denies any respiratory symptoms.? He denies pleuritic chest pain, cough, congestion, shortness of breath, fevers or chills. Interval history: 10/08:? The pat
[2023-10-12 19:19] LABS: Pneumococcal Antigen Urine NOT DETECTED
[2023-10-15 00:28] LABS: Legionella pneumophila Ag Ur NOT DETECTED
[2023-10-16 18:29] LABS: Mycoplasma IgM Antibody Titer 460 U/mL
== END 2023-10-10 16:27 | disposition home or self-care (01) ==
LOC: ANHED 21:15 → ANH2MED 22:33 → ANH3MEDSUR 10-11 08:28
PROVIDERS: Emergency Medicine; Nurse Practitioner Acute Care; Surgery; Admitting Provider Internal Medicine; Emergency Provider Physician Assistant; PCP Internal Medicine; Visit Provider Hospitalist
PROC: 0DTJ4ZZ Resection of Appendix, Percutaneous Endoscopic Approach (ICD-10-PCS; CPT 44970; principal; 2023-10-09 15:00)
DX: A41.9 Sepsis, unspecified organism (principal); K35.32 Acute appendicitis with perforation, localized peritonitis, and gangrene, without abscess; J85.0 Gangrene and necrosis of lung; I10 Essential (primary) hypertension; K21.9 Gastro-esophageal reflux disease without esophagitis; R00.0 Tachycardia, unspecified; R94.31 Abnormal electrocardiogram [ECG] [EKG]; E66.9 Obesity, unspecified; Z68.38 Body mass index [BMI] 38.0-38.9, adult; R06.83 Snoring; Z87.11 Personal history of peptic ulcer disease; Z87.891 Personal history of nicotine dependence; F10.90 Alcohol use, unspecified, uncomplicated; F12.90 Cannabis use, unspecified, uncomplicated; Z79.899 Other long term (current) drug therapy
CPT/HCPCS: 44970; S2900; 36415; 71045; 71250; 74177; 80048; 80053; 81001; 83605; 83690; 83735; 84145; 84484; 85025; 85610; 85730; 86738; 87040; 87449; 87641; 87899; 88304; 93005; 94762; 96361; 96365; 96366; 96367; 96375; 96376; 99285; A9270; C9113; G0378; J0330; J1100; J1170; J1596; J1650; J1836; J1885; J1956; J2250; J2270; J2405; J2543; J2704; J2710; J3370; J7030; J7120; Q9967

== ENCOUNTER 2023-12-30 08:43 | Outpatient (CLI) | payer BC, SELFPAY ==
--- NOTE | ~2023-12-30 | CT_ITS ---
CT Scan of the Chest without Contrast: Clinical Indication: Pneumonia Technique: Contiguous sections were acquired throughout the chest without intravenous contrast. Dose reduction technique was used on this scan by utilizing automated exposure control and iterative recon struction technique. The dose-length product (DLP) was 751.59 mGy-cm. COMPARISON: 10/09/2023 Findings: There is no evidence of any significant mediastinal, hilar or axillary lymphadenopathy. The mediastin al soft tissues appear normal. There is no evidence of pleural or pericardial effusion. Medial right lower lobe consolidation versus mass is unchanged. Stable subcentimeter left basilar pul monary nodule. Images through the upper abdomen reveal no abnormalities. Impression: Stable medial right lower lobe consolidation versus mass. Reviewed, dictated and finalized at [facility]. Impression: Stable medial right lower lobe consolidation versus mass.
== END 2023-12-30 08:44 ==
LOC: MICIMG 08:44
PROVIDERS: PCP Internal Medicine; Visit Provider Internal Medicine
DX: J18.9 Pneumonia, unspecified organism (principal)
CPT/HCPCS: 71250

== ENCOUNTER 2024-03-24 14:32 | Outpatient (CLI) | payer BC, SELFPAY ==
[2024-03-24 14:47] LABS: Kit Draw Collected
== END 2024-03-24 14:33 | disposition home or self-care (01) ==
PROVIDERS: PCP Internal Medicine; Visit Provider Internal Medicine Hematology & Oncology
DX: C34.91 Malignant neoplasm of unspecified part of right bronchus or lung (principal)
CPT/HCPCS: 36415

== ENCOUNTER 2024-04-21 13:51 | Outpatient (CLI) | payer BC, SELFPAY ==
--- NOTE | ~2024-04-21 | PE_ITS ---
EXAMINATION: PET skull to mid thigh DATE: 04/21/2024 15:32 INDICATION: Non-small cell cancer of right lung. TECHNIQUE: Blood glucose level was 93 mg/dL. 9.584 mCi of 18-fluorodeoxyglucose (18-FDG) was administ ered i.v. Low dose computed tomography (CT) images were acquired from the base of the brain to the pr oximal thighs for attenuation correction and anatomic localization. Automated exposure control was em ployed. Dose-length product (DLP) was 1506 mGy-cm. Positron emission tomography (PET) images were acq uired in the same distribution. COMPARISON: Chest CT 12/30/2023, CT abdomen and pelvis 10/08/2023 FINDINGS: Head/neck: There are no pathologically enlarged lymph nodes. Chest: There is a 6.3 x 4.6 cm cavitary mass in right lung lower lobe with maximum SUV of 5.8. No ple ural effusion. The heart size is normal. No pericardial effusion. There is bilateral gynecomastia. Abdomen/pelvis/proximal thighs: The liver and spleen are all normal. The gallbladder is absent. The p ancreas, adrenal glands, and kidneys are normal. The prostate is moderately enlarged. There are no di lated loops of bowel. The appendix is not visualized. There are no pathologically enlarged lymph node s. There is no free intraperitoneal fluid. There is no osseous malignancy. IMPRESSION: 1. 6.3 x 4.6 cm cavitary mass with maximum SUV of 5.8 in right lung lower lobe that measured 6.1 x 4. 4 cm on 10/08/2023. Outside bronchoscopy in February reportedly demonstrated adenocarcinoma. Reviewed, dictated and finalized at location [facility]. IMPRESSION: 1. 6.3 x 4.6 cm cavitary mass with maximum SUV of 5.8 in right lung lower lobe that measured 6.1 x 4.4 cm on 10/08/2023. Outside bronchoscopy in February repo rtedly demonstrated adenocarcinoma.
[2024-04-21 14:10] LABS: Glucose Point of Care 93 mg/dl (65-105)
== END 2024-04-21 13:52 | disposition home or self-care (01) ==
PROVIDERS: PCP Internal Medicine; Visit Provider Internal Medicine Hematology & Oncology
DX: C34.31 Malignant neoplasm of lower lobe, right bronchus or lung (principal)
CPT/HCPCS: 78815; A9552

== ENCOUNTER 2024-06-25 12:03 | Outpatient (CLI) | payer BC, SELFPAY ==
--- NOTE | ~2024-06-25 | XR_ITS ---
CHEST RADIOGRAPH, PA AND LATERAL CLINICAL HISTORY: mal chago of lower lobe of rt lung, F/U LUMPECTOMY RT LOW LOBE . COMPARISON: 10/08/2023 TECHNIQUE: PA and lateral views of the chest. FINDINGS The cardiomediastinal silhouette is partially obscured. Volume loss within the right hemithorax consistent with patient's history. The remainder of the lungs are clear. Visualized osseous structures and soft tissues are unremarkable. IMPRESSION: Volume loss within the right hemithorax, without focal infiltrate or effusion. Reviewed, dictated and finalized at location [facility]. [employer]
== END 2024-06-25 12:04 | disposition home or self-care (01) ==
PROVIDERS: PCP Internal Medicine
DX: E86.9 Volume depletion, unspecified (principal); J94.2 Hemothorax; C34.31 Malignant neoplasm of lower lobe, right bronchus or lung
CPT/HCPCS: 71046

== ENCOUNTER 2025-05-03 10:16 | Outpatient (CLI) | payer OTHER, SELFPAY ==
--- NOTE | ~2025-05-03 | CT_ITS ---
EXAMINATION:CT diagnostic chest w con DATE: 05/03/2025 11:32 INDICATION: Cancer right lung TECHNIQUE: Computed tomography (CT) of the chest was performed with intravenous contrast. The dose-length product (DLP) was 708.24 mGy-cm. COMPARISON: December 30, 2023 FINDINGS: Interval resection of right lower lobe mass with no gross recurrence at the surgical site. In the right lower lobe subpleural region image 82 series 4, 8 x 6 mm nodular focus noted which was not clearly present on the previous exam. Other scattered tiny nodules are unchanged. No consolidation effusion or pneumothorax. No bulky lymphadenopathy or masses seen. Heart and great vessels stable. Bones appear stable as do visualized portions of the upper abdomen, and extrathoracic soft tissues. IMPRESSION: 1. 8 x 6 mm nodular focus in the right lower lobe appears new. Correlate with PET CT or short interval follow-up chest CT. 2. Interval resection of right lower lobe mass with no gross evidence of localized recurrence. Reviewed, dictated and finalized at location [facility]. MAKER IMPRESSION: 1. 8 x 6 mm nodular focus in the right lower lobe appears new. Correlate with P ET CT or short interval follow-up chest CT. 2. Interval resection of right lower lobe mass with no gross evidence of locali zed recurrence.
[2025-05-03 10:40] LABS: Estimated Glomerular Filt Rate > 60
== END 2025-05-03 10:17 | disposition home or self-care (01) ==
LOC: MICIMG 10:17
PROVIDERS: PCP Internal Medicine Hematology & Oncology; Visit Provider Internal Medicine Hematology & Oncology
DX: R91.8 Other nonspecific abnormal finding of lung field (principal); C34.91 Malignant neoplasm of unspecified part of right bronchus or lung; R91.1 Solitary pulmonary nodule
CPT/HCPCS: 71260; Q9967